=== PATIENT | female | born 1995 | race Caucasian/White ===

== ENCOUNTER 2017-06-16 00:22 | Emergency (ER) | payer SELFPAY ==
[2017-06-16] MEDS ORDERED: MIDAZOLAM 2 MG/2 ML INJ IM ONE (01:02)
[2017-06-16] MEDS ORDERED: HALOPERIDOL LACTATE INJ 5 MG/1 ML VIAL IM ONE (01:02)
[2017-06-16] MEDS ORDERED: NORMAL SALINE 1000 ML 1,000 ML IV ONE (01:12)
[2017-06-16] MEDS ORDERED: HALOPERIDOL LACTATE INJ 5 MG/1 ML VIAL IV ONE (01:12)
--- NOTE | 2017-06-16 01:12 | ER Document Report ---
ED General - General Chief Complaint: ETOH Abuse Stated Complaint: ETOH Time Seen by Provider: 06/16/17 01:01 Notes: Patient is a 21-year-old female with unknown past medical history who presents to the emergency department acutely intoxicated. She arrives with friends who state that she was out drinking and partying tonight but there uncertain of what she has drank or possibly ingested. The patient herself is unable to provide any meaningful history, crying, stating that he needs to help her, provide additional history. TRAVEL OUTSIDE OF THE [place] IN LAST 30 DAYS: No - Related Data Allergies/Adverse Reactions: Unable to Assess Allergy (Verified 06/16/17 00:34) Past Medical History - General Information source: Friend Cannot obtain history due to: Intoxicated - Social History Smoking Status: Unknown if Ever Smoked Frequency of alcohol use: None Drug Abuse: None Family History: Reviewed & Not Pertinent Review of Systems - Review of Systems -: Yes ROS unobtainable due to patient's medical condition Physical Exam - Vital signs Interpretation: Tachycardic Notes: PHYSICAL EXAMINATION: GENERAL: Crying hysterically, intermittently thrashing in the bed HEAD: Atraumatic, normocephalic. EYES: Pupils equal round and reactive to light, extraocular movements intact, sclera anicteric, conjunctiva are normal. ENT: nares patent, oropharynx clear without exudates. Dry mucous membranes. NECK: Normal range of motion, supple without lymphadenopathy LUNGS: Breath sounds clear to auscultation bilaterally and equal. No wheezes rales or rhonchi. HEART: Regular tachycardia without murmurs ABDOMEN: Soft, nontender, normoactive bowel sounds. No guarding, no rebound. No masses appreciated. EXTREMITIES: Normal range of motion, no pitting or edema. No cyanosis. NEUROLOGICAL: No focal neurological deficits. Moves all extremities spontaneously. PSYCH: Anxious, tearful, intermittently agitated SKIN: Warm, Dry, normal turgor, no rashes or lesions noted. Course - Re-evaluation Re-evalutation: 06/16/17 01:11 Patient comes in, crying hysterically, unable to provide any meaningful history. She does state that she was drinking alcohol tonight apparently to the tach but does not state this to me. She does smell strongly of alcohol. She apparently denies any additional coingestions. She does appear clinically quite intoxicated and given her acute agitation, will be given haloperidol 5 mg. Will also provide IV fluids. Will monitor closely 06/16/17 01:53 After 5 mg of IV haloperidol patient is resting calmly, tachycardia is improving , no further agitation. Labs show mild dehydration, minimal alcohol level which would not account for patient's degree of abnormal behavior. Patient's initial presentation and behaviors are much more consistent with polypharmacy. She has no clinical evidence of head trauma or neck trauma and her initial clinical presentation is not consistent with head trauma as etiology of her altered mental status. Will monitor into the patient has clinically sober and then plan for disposition 06/16/17 02:59 Patient is now awake, talking, relates that she was out partying with friends, "just trying to have a good time" and that her 2-year-old is staying with her mother. She is uncertain if anybody has given her any additional medications but again her initial clinical profile the suggest that patient either willfully or unlawful use additional substances tonight beyond alcohol. Will ambulate and p.o. challenge the patient. When she has a sober ride she can be safely discharged home. - Laboratory Result Diagrams: 06/16/17 00:52 Laboratory results interpreted by me: 06/16/17 00:52 Potassium 3.4 L Carbon Dioxide 17 L Anion Gap 22 H Glucose 158 H Discharge - Discharge Clinical Impression: Acute alcohol intoxication Qualifiers: Complication of substance-induced condition: uncomplicated Qualified Code(s): F10.929 - Alcohol use, unspecified with intoxication, unspecified Altered mental status Qualifiers: Altered mental status type: transient alteration of awareness Qualified Code(s) : R40.4 - Transient alteration of awareness Condition: Good Disposition: HOME, SELF-CARE Additional Instructions: You were seen tonight for being highly intoxicated, confused, and likely were exposed to drugs other than alcohol. This is a serious indicator that you have substance abuse issues and should consider seeking counseling or help on how to manage use of substances appropriately. Please also keep in mind that you are under the age of 21 and consumption of alcohol is illegal. Please follow-up with her primary care doctor in the next several days. Return to the emergency department if you develop severe headache, persistent vomiting, weakness, numbness, or any other symptoms that are worrisome to you.
[2017-06-16 01:33] LABS: ALCOHOL 83 mg/dL (NONE DETECTED); BLOOD UREA NITROGEN 12 mg/dL (7-20); CALCIUM 9.3 mg/dL (8.4-10.2); CHLORIDE 105 mmol/L (98-107); CREATININE RESULT 0.82 mg/dL (0.52-1.25); GLUCOSE 158 mg/dL (75-110); POTASSIUM 3.4 mmol/L (3.6-5.0)
[2017-06-16 01:44] LABS: CARBON DIOXIDE 17 mmol/L (22-30); SODIUM 144.3 mmol/L (137-145)
[2017-06-16 01:45] LABS: ANION GAP 22 (5-19)
[2017-06-16 06:38] VITALS: BP 102/67
== END 2017-06-16 06:38 | disposition home or self-care (01) ==
LOC: ER 00:22 → EDBD 00:22 → ER 06:38
DX: F10.129 Alcohol abuse with intoxication, unspecified (principal); E86.0 Dehydration; R00.0 Tachycardia, unspecified
CPT/HCPCS: 99284; 96372; 36415; 80307; 80048; J1630

== ENCOUNTER 2017-07-06 19:08 | Emergency (ER) | payer MEDICAID ==
[2017-07-06 19:18] VITALS: BP 114/70
[2017-07-06 20:43] LABS: APPEARANCE,URINE SLIGHTLY-CLOUDY; BILIRUBIN,URINE NEGATIVE (NEGATIVE); GLUCOSE, URINE NEGATIVE (NEGATIVE); KETONES,URINE NEGATIVE (NEGATIVE); LEUKOCYTE ESTERASE,URINE TRACE (NEGATIVE); NITRITE,URINE NEGATIVE (NEGATIVE); PROTEIN,URINE NEGATIVE (NEGATIVE); URINE SPECIFIC GRAVITY 1.014; UROBILINOGEN,URINE NEGATIVE mg/dL (<2.0)
[2017-07-06 20:57] LABS: ABSOLUTE BASOPHILS # (AUTO) 0.1 10^3/uL (0.0-0.2); ABSOLUTE EOSINOPHILS # (AUTO) 0.1 10^3/uL (0.0-0.6); ABSOLUTE LYMPHOCYTES (AUTO) 2.3 10^3/uL (0.5-4.7); ABSOLUTE MONOCYTES (AUTO) 0.6 10^3/uL (0.1-1.4); ABSOLUTE NEUT (AUTO) 3.1 10^3/uL (1.7-8.2); EOSINOPHILS % (AUTO) 2.3 % (0-6); HEMATOCRIT 35.8 % (36.0-47.0); HEMOGLOBIN 11.8 g/dL (12.0-15.5); HGB HCT DIFFERENCE -0.4; LYMPHOCYTES % (AUTO) 37.3 % (13-45); MEAN CORPUSCULAR HEMOGLOBIN 26.2 pg (27.0-33.4); MEAN CORPUSCULAR VOLUME 79 fl (80-97); MONOCYTES % (AUTO) 9.8 % (3-13); RED BLOOD COUNT 4.51 10^6/uL (3.72-5.28); SEGMENTED NEUTROPHILS % (AUTO) 49.6 % (42-78); WHITE BLOOD COUNT 6.3 10^3/uL (4.0-10.5)
--- NOTE | 2017-07-06 21:09 | ER Document Report ---
ED GI/ - General Chief Complaint: Vaginal Bleeding Stated Complaint: VAGINAL BLEEDING Time Seen by Provider: 07/06/17 21:00 Notes: Patient is a 21-year-old female, at 8 weeks gestation by LMP, that comes emergency department for chief complaint of vaginal bleeding, she has had spotting for the past few days, increased vaginal bleeding earlier today, bleeding resolved at this time. She denies being in pain. She does report dysuria, she denies fever, vomiting, vaginal discharge, dizziness. She takes no daily medications. TRAVEL OUTSIDE OF THE [place] IN LAST 30 DAYS: No - Related Data Allergies/Adverse Reactions: No Known Allergies Allergy (Unverified 07/06/17 19:12) Past Medical History - General Information source: Patient - Social History Smoking Status: Current Every Day Smoker Frequency of alcohol use: None Drug Abuse: None Lives with: Family Family History: Reviewed & Not Pertinent Patient has suicidal ideation: No Patient has homicidal ideation: No Renal/ Medical History: Denies: Hx Peritoneal Dialysis Psychiatric Medical History: Reports: Hx Depression Past Surgical History: Reports: Hx Orthopedic Surgery - Immunizations Hx Diphtheria, Pertussis, Tetanus Vaccination: Yes Review of Systems - Review of Systems Constitutional: No symptoms reported EENT: No symptoms reported Cardiovascular: No symptoms reported Respiratory: No symptoms reported Gastrointestinal: See HPI Genitourinary: See HPI Female Genitourinary: See HPI Musculoskeletal: No symptoms reported Skin: No symptoms reported Hematologic/Lymphatic: No symptoms reported Neurological/Psychological: No symptoms reported Physical Exam - Vital signs Vitals: Temp Pulse Resp BP Pulse Ox 97.4 F 87 18 114/70 99 07/06/17 19:17 07/06/17 19:17 07/06/17 19:17 07/06/17 19:17 07/06/17 19:17 Interpretation: Normal - General General appearance: Appears well, Alert In distress: None - HEENT Head: Normocephalic, Atraumatic Eyes: Normal Pupils: PERRL - Respiratory Respiratory status: No respiratory distress Chest status: Nontender Breath sounds: Normal Chest palpation: Normal - Cardiovascular Rhythm: Regular Heart sounds: Normal auscultation Murmur: No - Abdominal Inspection: Normal Distension: No distension Bowel sounds: Normal Tenderness: Nontender. No: Tender, McBurney's point, Davison's sign, Guarding Organomegaly: No organomegaly - Back Back: Normal, Nontender. No: Tender, CVA tenderness - Extremities General upper extremity: Normal inspection, Nontender, Normal color, Normal ROM , Normal temperature General lower extremity: Normal inspection, Nontender, Normal color, Normal ROM , Normal temperature, Normal weight bearing. No: Ishaan's sign - Neurological Neuro grossly intact: Yes Cognition: Normal Orientation: AAOx4 Sisters Coma Scale Eye Opening: Spontaneous Sisters Coma Scale Verbal: Oriented Leeann Coma Scale Motor: Obeys Commands Sisters Coma Scale Total: 15 Speech: Normal Motor strength normal: LUE, RUE, LLE, RLE Sensory: Normal - Psychological Associated symptoms: Normal affect, Normal mood - Skin Skin Temperature: Warm Skin Moisture: Dry Skin Color: Normal Course - Re-evaluation Re-evalutation: Patient is well-appearing, abdomen is nontender, vital signs unremarkable. CBC unremarkable, hCG is elevated at 8500, blood type is O+. Urinalysis consistent with urinary tract infection. Ultrasound does not show intrauterine or any obvious acute abnormalities. Concern for possible ectopic (also because patient denies having any significant bleeding or passing any obvious tissue). 07/06/17 22:[address] Bruner, [facility], based on patient not wanting to keep the and the risk of possible ectopic , his recommendation at this time is for patient be given a dose of methotrexate and then follow-up in the office for serial beta hCG levels. Recommends checking renal and liver functioning before dosing. Discussed methotrexate dosing, patient will be given 50 mg/m body surface area IM single dose protocol. Patient is 5 foot 2 inches or 157.48 cm, her weight is 55 kg, this gives her a body surface area of 1.55 m. And 50 mg/m body surface area this is 77.5 mg. Discussed all details with patient, she states she is in full agreement with getting treated and following up with [facility] as planned. Having to do a written order for the IM MTX, scanning this in. Explained why we are waiting to the patient. 07/07/17 Nurse reported to me that patient eloped. 07/07/17 12:20 Called patient on her phone after she eloped, she did answer, explained again that she could have an ectopic as we discussed before and this could be potentially life-threatening, also discussed that she had not been treated yet for her urinary tract infection, she states that she does want to come back in and get treated but does not think she will be able to until this morning. She states she agreed with plan but she needed to get back home at the time. Advised her to return sooner than this tomorrow morning if she develops severe pain or any other concerning or worsening symptoms. She states understanding and agreement. - Vital Signs Vital signs: Temp Pulse Resp BP Pulse Ox 97.4 F 87 18 114/70 99 07/06/17 19:17 07/06/17 19:17 07/06/17 19:17 07/06/17 19:17 07/06/17 19:17 - Laboratory Result Diagrams: 07/06/17 20:40 07/06/17 20:40 Laboratory results interpreted by me: 07/06/17 07/06/17 07/06/17 20:26 20:40 20:40 Hgb 11.8 L Hct 35.8 L MCV 79 L MCH 26.2 L RDW 16.0 H Carbon Dioxide BUN Total Bilirubin Albumin Beta HCG, Quant 8529.90 H Ur Leukocyte Esterase TRACE H 07/06/17 20:40 Hgb Hct MCV MCH RDW Carbon Dioxide 21 L BUN 6 L Total Bilirubin 0.1 L Albumin 3.6 L Beta HCG, Quant Ur Leukocyte Esterase Discharge - Discharge Clinical Impression: Vaginal bleeding affecting early , Dysuria Condition: Stable Disposition: HOME, SELF-CARE Additional Instructions: Your ultrasound does not show a in the uterus but your hormone is still elevated. It is unclear if you have already miscarried or if you have an ectopic . I spoke with Dr. Bruner (OBGYN). You have been given a dose of methotrexate to help treat a suspected possible ectopic . Call the [facility] referral in the morning to set up a very close follow-up to recheck your blood levels and make sure this is working. Take the Keflex antibiotic as prescribed for urinary tract infection. Return immediately if you worsen in anyway including developing or severe pain, fever, passing out, or any other concerning symptoms. Prescriptions: Cephalexin Monohydrate [Keflex 500 mg Capsule] 500 mg PO BID #10 capsule Referrals: MACARENA BRUNER MD [ACTIVE STAFF] - Follow up tomorrow
--- NOTE | 2017-07-06 21:55 | RADIOLOGY REPORT (SQ) ---
EXAM DESCRIPTION: U/S OB TRANSVAG W/DOPPLER COMPLETED DATE/TIME: 07/06/2017 9:43 pm REASON FOR STUDY: vaginal bleeding, 1st trimester COMPARISON: None. TECHNIQUE: Transvaginal static and realtime grayscale images acquired of the pelvis. Additional laureano cted spectral and color Doppler images recorded. All images stored on PACs. BHCG: Pending. LIMITATIONS: None. FINDINGS: UTERUS: No visualized intrauterine . RIGHT ADNEXA: Normal ovary with normal vascular flow. No adnexal free fluid. 1.5 cm complex cyst. LEFT ADNEXA: Normal ovary with normal vascular flow. No adnexal free fluid. No adnexal masses. FREE FLUID: None. OTHER: No other significant finding. IMPRESSION: NO VISUALIZED INTRA- OR EXTRAUTERINE . bHCG LEVEL NOT AVAILABLE FOR CORRELATION WITH US FINDINGS. ECTOPIC CANNOT BE EXCLUDED. FOLLOW-UP ULTRASOUND AND SERIAL BHCG LEVELS STRONGLY RECOMMENDED TO ACCURATELY ASSESS STATU S. TECHNICAL DOCUMENTATION: JOB ID: [id number] [employer]- All Rights Reserved
[2017-07-06 22:58] LABS: ALANINE AMINOTRANSFERASE 25 U/L (5-35); ALBUMIN 3.6 g/dL (3.7-5.6); ALKALINE PHOSPHATASE 54 U/L (50-135); ANION GAP 11 (5-19); ASPARTATE AMINO TRANSFERASE 16 U/L (5-30); BILIRUBIN,DIRECT 0.1 mg/dL (0.0-0.4); BILIRUBIN,TOTAL 0.1 mg/dL (0.2-1.3); BLOOD UREA NITROGEN 6 mg/dL (7-20); CALCIUM 9.3 mg/dL (8.4-10.2); CARBON DIOXIDE 21 mmol/L (22-30); CHLORIDE 107 mmol/L (98-107); CREATININE RESULT 0.66 mg/dL (0.52-1.25); GLUCOSE 80 mg/dL (75-110); POTASSIUM 4.2 mmol/L (3.6-5.0); SODIUM 139.3 mmol/L (137-145); TOTAL PROTEIN 6.5 g/dL (6.3-8.2)
== END 2017-07-06 23:58 | disposition left against medical advice (07) ==
LOC: ER 19:08
DX: O20.9 Hemorrhage in early pregnancy, unspecified (principal); O23.41 Unspecified infection of urinary tract in pregnancy, first trimester; O99.331 Smoking (tobacco) complicating pregnancy, first trimester; Z3A.08 8 weeks gestation of pregnancy; O26.891 Other specified pregnancy related conditions, first trimester
CPT/HCPCS: 36415; 76817; 80053; 81001; 84702; 85025; 86900; 86901; 93976; 99284

== ENCOUNTER 2017-07-10 16:23 | Inpatient (IN) | payer MEDICAID ==
[~2017-07-10 16:23] MED LIST: GLYCOPYRROLATE INJ 0.4 MG/2 ML VIAL ONE; KETOROLAC TROMETHAMINE 60 MG/2 ML SDV ONE; NEOSTIGMINE METHYLSULFATE 10 MG/10 ML VIAL ONE; ROCURONIUM BROMIDE INJ 50 MG/5 ML VIAL IV ONE; SUCCINYLCHOLINE CHLORIDE INJ 200 MG/10 ML VIAL ONE
--- NOTE | 2017-07-10 17:19 | ER Document Report ---
ED Medical Screen (RME) - General Mode of Arrival: Ambulatory Information source: Patient TRAVEL OUTSIDE OF THE [place] IN LAST 30 DAYS: No <GANESH CARDENAS - Last Filed: 07/10/17 17:37> <SEUN MOURA - Last Filed: 07/10/17 18:29> - General Chief Complaint: Abdominal Pain Stated Complaint: ABDOMINAL PAIN Time Seen by Provider: 07/10/17 17:08 Notes: Patient is a 21 year old female presenting to the emergency department concerned for possible . Patient was last seen here on 07/07/2017 and told she had a positive test but unable to see anything on ultrasound and there was a concern for possible miscarriage or ectopic . Patient was going to receive Methotrexate but did not because she left. Patient states she has symptoms of burning urination and some vaginal spotting. I have greeted and performed a rapid initial assessment of this patient. A comprehensive ED assessment and evaluation of the patient, analysis of test results and completion of the medical decision making process will be conducted by additional ED providers. (GANESH CARDENAS) - Related Data Allergies/Adverse Reactions: No Known Allergies Allergy (Verified 07/10/17 16:25) Past Medical History Renal/ Medical History: Denies: Hx Peritoneal Dialysis Psychiatric Medical History: Reports: Hx Depression Past Surgical History: Reports: Hx Orthopedic Surgery - Immunizations Hx Diphtheria, Pertussis, Tetanus Vaccination: Yes <GANESH CARDENAS - Last Filed: 07/10/17 17:37> Physical Exam <GANESH CARDENAS - Last Filed: 07/10/17 17:37> - General General appearance: Appears well, Alert - HEENT Head: Normocephalic, Atraumatic Eyes: Normal Pupils: PERRL - Psychological Associated symptoms: Normal affect, Normal mood <SEUN MOURA - Last Filed: 07/10/17 18:29> - Vital signs Vitals: Temp Pulse Resp BP Pulse Ox 98.0 F 86 20 108/68 100 07/10/17 16:29 07/10/17 16:29 07/10/17 16:29 07/10/17 16:29 07/10/17 16:29 - Notes Notes: GENERAL: Alert, interacts well. No acute distress. (GANESH CARDENAS) Course - Laboratory Result Diagrams: 07/10/17 17:30 07/10/17 17:30 <SEUN MOURA - Last Filed: 07/10/17 18:29> - Vital Signs Vital signs: Temp Pulse Resp BP Pulse Ox 98.0 F 86 20 108/68 100 07/10/17 16:29 07/10/17 16:29 07/10/17 16:29 07/10/17 16:29 07/10/17 16:29 - Laboratory Laboratory results interpreted by me: 07/10/17 07/10/17 17:30 17:30 MCH 25.6 L RDW 16.1 H Urine Protein 100 H Urine Blood SMALL H Urine Urobilinogen 2.0 H Ur Leukocyte Esterase MODERATE H Scribe Documentation - Scribe Written by Luci:: Luci Pena, 07/10/2017 17:31 acting as scribe for :: Lon <GANESH CARDENAS - Last Filed: 07/10/17 17:37>
[2017-07-10 17:54] LABS: ABSOLUTE BASOPHILS # (AUTO) 0.1 10^3/uL (0.0-0.2); ABSOLUTE EOSINOPHILS # (AUTO) 0.2 10^3/uL (0.0-0.6); ABSOLUTE MONOCYTES (AUTO) 0.6 10^3/uL (0.1-1.4); ABSOLUTE NEUT (AUTO) 3.7 10^3/uL (1.7-8.2); BASOPHILS % (AUTO) 0.9 % (0-2); EOSINOPHILS % (AUTO) 3.7 % (0-6); HEMATOCRIT 41.3 % (36.0-47.0); HEMOGLOBIN 13.3 g/dL (12.0-15.5); LYMPHOCYTES % (AUTO) 30.4 % (13-45); MEAN CORPUSCULAR HEMOGLOBIN 25.6 pg (27.0-33.4); MEAN CORPUSCULAR HGB CONC 32.2 g/dL (32.0-36.0); MEAN CORPUSCULAR VOLUME 80 fl (80-97); MONOCYTES % (AUTO) 9.5 % (3-13); PLATELET COUNT 281 10^3/uL (150-450); RED BLOOD COUNT 5.19 10^6/uL (3.72-5.28); RED CELL DISTRIBUTION WIDTH 16.1 % (11.5-14.0); SEGMENTED NEUTROPHILS % (AUTO) 55.5 % (42-78); TOTAL CELLS COUNTED % (AUTO) 100 %; WHITE BLOOD COUNT 6.6 10^3/uL (4.0-10.5)
[2017-07-10 18:00] LABS: INTERNATIONAL RATION (INR) 0.93; PROTHROMBIN TIME 13.1 SEC (11.4-15.4)
[2017-07-10 18:04] LABS: APPEARANCE,URINE CLOUDY; BILIRUBIN,URINE NEGATIVE (NEGATIVE); COLOR,URINE YELLOW; GLUCOSE, URINE NEGATIVE (NEGATIVE); KETONES,URINE NEGATIVE (NEGATIVE); LEUKOCYTE ESTERASE,URINE MODERATE (NEGATIVE); NITRITE,URINE NEGATIVE (NEGATIVE); PROTEIN,URINE 100 mg/dL (NEGATIVE); URINE SPECIFIC GRAVITY 1.023
[2017-07-10 18:16] LABS: ALANINE AMINOTRANSFERASE 20 U/L (5-35); ALBUMIN 4.2 g/dL (3.7-5.6); ALKALINE PHOSPHATASE 61 U/L (50-135); ANION GAP 11 (5-19); ASPARTATE AMINO TRANSFERASE 18 U/L (5-30); BILIRUBIN,DIRECT 0.2 mg/dL (0.0-0.4); BILIRUBIN,TOTAL 0.6 mg/dL (0.2-1.3); BLOOD UREA NITROGEN 9 mg/dL (7-20); CALCIUM 9.9 mg/dL (8.4-10.2); CARBON DIOXIDE 28 mmol/L (22-30); CHLORIDE 104 mmol/L (98-107); GLUCOSE 64 mg/dL (75-110); POTASSIUM 3.8 mmol/L (3.6-5.0); SODIUM 143.3 mmol/L (137-145); TOTAL PROTEIN 7.2 g/dL (6.3-8.2)
--- NOTE | 2017-07-10 19:01 | RADIOLOGY REPORT (SQ) ---
EXAM DESCRIPTION: U/S OB TRANSVAG W/DOPPLER COMPLETED DATE/TIME: 07/10/2017 6:47 pm REASON FOR STUDY: possible ectopic vs miscarriage, recheck COMPARISON: 07/06/2017. TECHNIQUE: Transvaginal static and realtime grayscale images acquired of the pelvis. Additional laureano cted spectral and color Doppler images recorded. All images stored on PACs. BHCG: Pending. LIMITATIONS: None. FINDINGS: UTERUS: No visualized intrauterine . RIGHT ADNEXA: There is a clearly defined ectopic in the right adnexa. There is a gestation al sac with yolk sac and pole. Measurements correspond with a 6 week gestation. cardiac activity is present with a heart rate of 51. LEFT ADNEXA: Ovary not identified. No adnexal free fluid. No adnexal masses. FREE FLUID: None. OTHER: No other significant finding. IMPRESSION: CLEARLY DEFINED ECTOPIC IN THE RIGHT ADNEXA, 6 WEEK GESTATION. NO FREE FLUID OR EVIDENCE OF HEMORRHAGE. COMMENT: Pertinent findings on the imaging study reported as a CRITICAL RESULT to ER provider at18: 54 on 07/10/2017. Category of Critical Result: Ectopic . TECHNICAL DOCUMENTATION: JOB ID: [id number] [employer]- All Rights Reserved
--- NOTE | 2017-07-10 19:07 | ER Document Report ---
ED GI/ <KINSEY HENSON - Last Filed: 07/10/17 19:26> - General Mode of Arrival: Ambulatory TRAVEL OUTSIDE OF THE [place] IN LAST 30 DAYS: No - HPI Patient complains to provider of: Dysuria, Vaginal bleeding - spotting Associated symptoms: Other - see notes above <HAYDEE HOLBROOK - Last Filed: 07/10/17 19:31> - General Chief Complaint: Abdominal Pain Stated Complaint: ABDOMINAL PAIN Time Seen by Provider: 07/10/17 17:08 Notes: 21 year old female presents to the ED complaining of dysuria, burning with urination, and rare vaginal spotting that has been present for the past 4 days. Patient reports that she was seen in the ED on 07/06/2017 for vaginal bleeding and was informed of possible miscarriage or ectopic in addition to a bladder infection. Patient reports that she left the ED before receiving any medications. Today, patient reports no pain and says that she is only having some occasional spotting. (HAYDEE HOLBROOK) - Related Data Allergies/Adverse Reactions: No Known Allergies Allergy (Verified 07/10/17 16:25) Past Medical History - General Information source: Patient - Social History Smoking Status: Current Every Day Smoker Chew tobacco use (# tins/day): No Frequency of alcohol use: None Drug Abuse: None Family History: Reviewed & Not Pertinent Patient has suicidal ideation: No Patient has homicidal ideation: No Renal/ Medical History: Denies: Hx Peritoneal Dialysis Psychiatric Medical History: Reports: Hx Depression Past Surgical History: Reports: Hx Orthopedic Surgery - Immunizations Hx Diphtheria, Pertussis, Tetanus Vaccination: Yes <HAYDEE HOLBROOK - Last Filed: 07/10/17 19:31> Review of Systems - Review of Systems Constitutional: No symptoms reported EENT: No symptoms reported Cardiovascular: No symptoms reported Respiratory: No symptoms reported Gastrointestinal: No symptoms reported Genitourinary: See HPI, Burning, Dysuria Female Genitourinary: See HPI, Vaginal bleeding - spotting Musculoskeletal: No symptoms reported Skin: No symptoms reported Hematologic/Lymphatic: No symptoms reported Neurological/Psychological: No symptoms reported -: Yes All other systems reviewed and negative <HAYDEE HOLBROOK - Last Filed: 07/10/17 19:31> Physical Exam - General General appearance: Alert In distress: None - HEENT Head: Normocephalic, Atraumatic Eyes: Normal Extraocular movements intact: Yes Pupils: PERRL - Respiratory Respiratory status: No respiratory distress Breath sounds: Normal - Cardiovascular Rhythm: Regular Heart sounds: Normal auscultation - Abdominal Inspection: Normal Tenderness: Tender - suprapubic tenderness to palpation - Back Back: Normal - Extremities General upper extremity: Normal inspection, Normal ROM General lower extremity: Normal inspection, Normal ROM - Neurological Neuro grossly intact: Yes - Psychological Associated symptoms: Normal affect, Normal mood - Skin Skin Temperature: Warm Skin Moisture: Dry Skin Color: Normal <HAYDEE HOLBROOK - Last Filed: 07/10/17 19:31> - Vital signs Vitals: Temp Pulse Resp BP Pulse Ox 98.0 F 86 20 108/68 100 07/10/17 16:29 07/10/17 16:29 07/10/17 16:29 07/10/17 16:29 07/10/17 16:29 Course - Laboratory Result Diagrams: 07/10/17 17:30 07/10/17 17:30 - Diagnostic Test Radiology reviewed: Reports reviewed - Ultrasound shows a right adnexal ectopic with heart rate 51, gestational sac, yolk sac, and pole. There is no bleeding seen. - Consults Dr. Bruner Time consulted: 19:10 Consulted provider: will come to ER <KINSEY HENSON - Last Filed: 07/10/17 19:26> - Laboratory Result Diagrams: 07/10/17 17:30 07/10/17 17:30 <HAYDEE HOLBROOK - Last Filed: 07/10/17 19:31> - Vital Signs Vital signs: Temp Pulse Resp BP Pulse Ox 98.0 F 86 20 108/68 100 07/10/17 16:29 07/10/17 16:29 07/10/17 16:29 07/10/17 16:29 07/10/17 16:29 - Laboratory Laboratory results interpreted by me: 07/10/17 07/10/17 07/10/17 17:30 17:30 17:30 MCH 25.6 L RDW 16.1 H Glucose 64 L Beta HCG, Quant 20992.00 H Urine Protein 100 H Urine Blood SMALL H Urine Urobilinogen 2.0 H Ur Leukocyte Esterase MODERATE H Discharge - Discharge Admitting Provider: [facility] Admitted: OR <KINSEY HENSON - Last Filed: 07/10/17 19:26> <HAYDEE HOLBROOK - Last Filed: 07/10/17 19:31> - Discharge Clinical Impression: Ectopic , tubal Qualifiers: Intrauterine status: without intrauterine Laterality: right Qualified Code(s): O00.101 - Right tubal without intrauterine Urinary tract infection Qualifiers: Urinary tract infection type: acute cystitis Hematuria presence: with hematuria Qualified Code(s): N30.01 - Acute cystitis with hematuria Referrals: REJI GLOVER DO [NO LOCAL MD] - Follow up as needed Scribe Attestation: 07/10/17 19:27 I personally performed the services described in the documentation, reviewed and edited the documentation which was dictated to the scribe in my presence, and it accurately records my words and actions. (KINSEY HENSON) Scribe Documentation - Scribe Written by Scribe:: Luci Mejias, 07/10/2017 1931 acting as scribe for :: Zak <HAYDEE HOLBROOK - Last Filed: 07/10/17 19:31>
[2017-07-10] MEDS ORDERED: CEFAZOLIN 2 GM/D5W RTU 2 GM/50 ML RTUPB IV PRN (20:15)
[2017-07-10] MEDS ORDERED: FENTANYL CITRATE INJ/PF 100 MCG/2 ML AMPUL ONE ×2 (23:17→23:18)
[2017-07-10] MEDS ORDERED: HYDROMORPHONE HCL INJ/PF 2 MG/ML AMPULE ONE (23:17)
[2017-07-10] MEDS ORDERED: ONDANSETRON HCL INJ/PF 4 MG/2 ML SDV ONE (23:18)
[2017-07-10] MEDS ORDERED: DEXAMETHASONE SOD PHOSPHATE INJ 4 MG/1 ML VIAL ONE (23:18)
[2017-07-10] MEDS ORDERED: MIDAZOLAM 2 MG/2 ML INJ ONE (23:18)
[2017-07-10] MEDS ORDERED: PROPOFOL INJ 200 MG/20 ML VIAL IV ONE (23:19)
[2017-07-11] MEDS ORDERED: MORPHINE SULFATE 10 MG/ML INJ IV PRN (00:17)
[2017-07-11] MEDS ORDERED: DIPHENHYDRAMINE HCL 50 MG/ML VIAL IV PRN (00:17)
[2017-07-11] MEDS ORDERED: MEPERIDINE HCL/PF INJ 25 MG/1 ML DISP.SYRIN IV PRN (00:17)
[2017-07-11] MEDS ORDERED: OXYCODONE-ACETAMINOPHEN 5-325 MG TABLET PO PRN ×3 (00:17→01:23)
[2017-07-11] MEDS ORDERED: FENTANYL CITRATE INJ/PF 100 MCG/2 ML AMPUL IV PRN ×3 (00:17)
[2017-07-11] MEDS ORDERED: PROMETHAZINE HCL INJ 25 MG/1 ML VIAL IV PRN ×2 (00:17)
--- NOTE | 2017-07-11 01:03 | Operative Report ---
Operative Report DATE OF SURGERY: 07/11/17 PREOPERATIVE DIAGNOSIS: Right ectopic POSTOPERATIVE DIAGNOSIS: Same OPERATION: Laparoscopy with right salpingectomy SURGEON: MACARENA DECKER ANESTHESIA: GA TISSUE REMOVED OR ALTERED: Right fallopian tube with ectopic COMPLICATIONS: None ESTIMATED BLOOD LOSS: 5 cc INTRAOPERATIVE FINDINGS: Normal left tube and ovary normal right ovary, right ectopic PROCEDURE: Patient was seen in the ER and has a heartbeat in the right adnexa consistent with an ectopic . We have discussed options including methotrexate and the relative contraindication to that with the heartbeat. I have also discussed operative treatment with laparoscopy. She wished to proceed with the laparoscopy. Patient was taken the OR and placed in supine position. General anesthesia was induced. She was placed in dorsolithotomy position using Syed stirrups. Her abdomen perineum and vagina were prepared and draped in sterile fashion. Her bladder was drained with a red rubber catheter. A sponge stick was placed in the vagina for manipulation of the uterus. Incision was made at the umbilicus natural umbilical defect identified and dilated with a Mary clamp allowing a blunt port to be placed. Laparoscopy confirmed appropriate placement. The abdomen was insufflated with CO2 gas. Suprapubic and left lateral ports were placed under laparoscopic visualization. This allowed removal of the right fallopian tube using a blunt grasper and the LigaSure device. The ectopic was in the distal right fallopian tube. Hemostasis was good pedicle. The specimen was placed in the Endo Catch bag and removed through the umbilicus. The umbilical port was replaced. The pelvis was irrigated and suctioned free of fluid. Hemostasis was good. There was no evidence of injury to bowel bladder or blood vessels. The suprapubic and left lateral ports were removed. The umbilical port was removed and gas was allowed to escape. The fascia at the umbilicus was closed with the 2-0 Vicryl stitch and skin closed with 4-0 undyed Vicryl stitch at all 3 sites. All instruments removed from the vagina. She is brought out of anesthesia and taken recovery in stable condition.
[2017-07-11] MEDS ORDERED: RINGERS SOLUTION,LACTATED 1,000 ML IV PRN (01:22)
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
[2017-07-11 10:36] VITALS: BP 110/68
== END 2017-07-11 11:42 | disposition home or self-care (01) | DRG 777 ==
LOC: ER 16:23 → EH 19:46 → 2S 21:45
PROVIDERS: ADMIT Obstetrics & Gynecology; ATTEND Obstetrics & Gynecology
PROC: 0UT54ZZ Resection of Right Fallopian Tube, Percutaneous Endoscopic Approach (ICD-10-PCS; principal; 2017-07-11)
PROC: 10T24ZZ Resection of Products of Conception, Ectopic, Percutaneous Endoscopic Approach (ICD-10-PCS; 2017-07-11)
DX: O00.101 Right tubal pregnancy without intrauterine pregnancy (principal); N30.01 Acute cystitis with hematuria; F17.200 Nicotine dependence, unspecified, uncomplicated; F32.9 Major depressive disorder, single episode, unspecified
CPT/HCPCS: 36415; 76817; 80053; 81001; 840; 84702; 85025; 85610; 86900; 86901; 87086; 87088; 87186; 88305; 93976; 99285; J0330; J0690; J1100; J1170; J1885; J2250; J2405; J2704; J3010; J3490

== ENCOUNTER 2017-10-29 23:36 | Emergency (ER) | payer OTHER, MEDICAID ==
--- NOTE | 2017-10-31 08:41 | EKG REPORT ---
SEVERITY:- NORMAL ECG - SINUS RHYTHM : Confirmed by: Kale Savage MD 31-Oct-2017 08:41:12
== END 2017-10-30 00:30 | disposition left against medical advice (07) ==
LOC: ER 23:36
DX: Z53.21 Procedure and treatment not carried out due to patient leaving prior to being seen by health care provider (principal); R07.9 Chest pain, unspecified
CPT/HCPCS: 93005; 93010

== ENCOUNTER 2017-12-18 01:06 | Emergency (ER) | payer OTHER, MEDICAID ==
[2017-12-18 01:14] VITALS: BP 103/75
== END 2017-12-18 02:09 | disposition left against medical advice (07) ==
LOC: ER 01:06
DX: Z53.21 Procedure and treatment not carried out due to patient leaving prior to being seen by health care provider (principal); R07.9 Chest pain, unspecified

== ENCOUNTER 2018-03-19 23:10 | Emergency (ER) | payer MEDICAID, OTHER ==
--- NOTE | 2018-03-20 00:17 | ER Document Report ---
HPI - HPI Patient complains to provider of: sores vaginal area Onset: Other - 8 days Pain Level: 4 Context: 22-year-old female complaining of sores below her vaginal opening since she has been having frequent intercourse this week. She thought it was due to irritation. No history of herpes simplex virus. No vaginal discharge or swollen glands. Associated Symptoms: None Exacerbated by: Other - sex Relieved by: Denies - ROS ROS below otherwise negative: Yes Systems Reviewed and Negative: Yes All other systems reviewed and negative - REPRODUCTIVE Reproductive: DENIES: : Past Medical History - General Information source: Patient - Social History Smoking Status: Unknown if Ever Smoked Lives with: Family Family History: Reviewed & Not Pertinent - Medical History Medical History: Negative Neurological Medical History: Denies: Hx Seizures Past Surgical History: Reports: Hx Orthopedic Surgery - Immunizations Hx Diphtheria, Pertussis, Tetanus Vaccination: Yes Vertical Provider Document - CONSTITUTIONAL Agree With Documented VS: Yes Exam Limitations: No Limitations - INFECTION CONTROL TRAVEL OUTSIDE OF THE [place] IN LAST 30 DAYS: No - REPRODUCTIVE Notes: no adenopathy, shallow tender ulcerations or folliculitis inferior to introitus and perineum. - NEURO Level of Consciousness: Awake - DERM Integumentary: Rash - see above Course - Re-evaluation Re-evalutation: 03/20/18 00:37 correct cell phone number: [phone] - Vital Signs Vital signs: Temp Pulse Resp BP Pulse Ox 97.7 F 92 16 113/67 99 03/19/18 23:20 03/19/18 23:20 03/19/18 23:20 03/19/18 23:20 03/19/18 23:20 Discharge - Discharge Clinical Impression: perineal ulcerations Condition: Good Disposition: HOME, SELF-CARE Instructions: Bactroban Ointment ([facility]), Ulcer ([facility]) Additional Instructions: Herpes simplex virus is pending and should be resulted in 72 hours Bactroban small amount 3 times a day for 3 days Stop having intercourse until the sores go away since it may be causing the irritation Return to the emergency room any concerns
[2018-03-20] MEDS ORDERED: MUPIROCIN 2% OINTMENT 22 GM TP ONE (00:25)
[2018-03-20 00:50] VITALS: BP 95/72
== END 2018-03-20 00:53 | disposition home or self-care (01) ==
LOC: ER 23:10
DX: N76.5 Ulceration of vagina (principal)
CPT/HCPCS: 99283; 87250; J3490

== ENCOUNTER 2018-04-04 19:38 | Emergency (ER) | payer MEDICAID ==
[2018-04-04 19:53] VITALS: BP 110/71
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
== END 2018-04-04 21:19 | disposition home or self-care (01) ==
LOC: ER 19:38
DX: S01.112D Laceration without foreign body of left eyelid and periocular area, subsequent encounter (principal); X58.XXXD Exposure to other specified factors, subsequent encounter

== ENCOUNTER 2018-08-07 18:04 | Emergency (ER) | payer MEDICAID ==
--- NOTE | 2018-08-07 19:19 | ER Document Report ---
ED Medical Screen (RME) - General Chief Complaint: Laceration Stated Complaint: LACERATION TO CHIN Time Seen by Provider: 08/07/18 19:15 Notes: Patient is a newly arrived inpatient at [facility], admitted there on the . Today, she was observed to have a syncopal episode. She fell and in some manner hit her chin and sustained a small cut there she also has a small scrape of her right hand, dorsal webspace and some superficial bruising across the dorsal hand and fingers. No deformities. Patient does not answer questions that I put to her. A counselor is here and provided a drug list which included Geodon. No information about whether patient has had previous syncopal episodes. TRAVEL OUTSIDE OF THE [place] IN LAST 30 DAYS: No - Related Data Allergies/Adverse Reactions: No Known Allergies Allergy (Verified 08/07/18 18:07) Past Medical History - Social History Frequency of alcohol use: None Drug Abuse: None - Past Medical History Cardiac Medical History: Denies: Hx Congestive Heart Failure, Hx Heart Attack, Hx Hypertension Pulmonary Medical History: Denies: Hx Asthma, Hx Bronchitis, Hx COPD, Hx Pneumonia, Hx Tuberculosis Neurological Medical History: Denies: Hx Seizures Renal/ Medical History: Denies: Hx End Stage Renal Disease, Hx Kidney Stones, Hx Peritoneal Dialysis GI Medical History: Denies: Hx Cirrhosis, Hx Gastroesophageal Reflux Disease, Hx Ulcer Musculoskeltal Medical History: Denies Hx Arthritis, Denies Hx Multiple Sclerosis Psychiatric Medical History: Denies: Hx Bipolar Disorder, Hx Depression, Hx Schizophrenia Past Surgical History: Reports: Hx Orthopedic Surgery - Immunizations Hx Diphtheria, Pertussis, Tetanus Vaccination: Yes History of Influenza Vaccine for 04/2017 - 09/2017 Season: No Physical Exam - Vital signs Vitals: Temp Pulse Resp BP Pulse Ox 98.2 F 118 H 20 126/78 H 100 08/07/18 18:10 08/07/18 18:10 08/07/18 18:10 08/07/18 18:10 08/07/18 18:10 Course - Vital Signs Vital signs: Temp Pulse Resp BP Pulse Ox 98.2 F 118 H 20 126/78 H 100 08/07/18 18:10 08/07/18 18:10 08/07/18 18:10 08/07/18 18:10 08/07/18 18:10 Doctor's Discharge - Discharge Referrals: DREAD ASH MD [Primary Care Provider] - Follow up as needed
--- NOTE | 2018-08-07 19:50 | RADIOLOGY REPORT (SQ) ---
EXAM DESCRIPTION: HAND RIGHT 3 VIEWS COMPLETED DATE/TIME: 08/07/2018 7:39 pm REASON FOR STUDY: Fell and injured right hand. Minor bruises COMPARISON: None. EXAM PARAMETERS: NUMBER OF VIEWS: Three views. TECHNIQUE: AP, lateral and oblique radiographic images acquired of the right hand. LIMITATIONS: None. FINDINGS: MINERALIZATION: Normal. BONES: No acute fracture or dislocation. No worrisome bone lesions. JOINTS: No effusion. SOFT TISSUES: No significant soft tissue swelling. No radiopaque foreign body. OTHER: No other significant finding. IMPRESSION: NO FRACTURE. TECHNICAL DOCUMENTATION: JOB ID: [id number] [place]-72 2010 [employer]- All Rights Reserved Reading location - IP/workstation name: [email or web address]
[2018-08-07 19:54] LABS: ABSOLUTE BASOPHILS # (AUTO) 0.1 10^3/uL (0.0-0.2); ABSOLUTE LYMPHOCYTES (AUTO) 2.1 10^3/uL (0.5-4.7); BASOPHILS % (AUTO) 0.9 % (0-2); EOSINOPHILS % (AUTO) 0.5 % (0-6); HEMATOCRIT 40.5 % (36.0-47.0); HEMOGLOBIN 13.3 g/dL (12.0-15.5); LYMPHOCYTES % (AUTO) 20.8 % (13-45); MEAN CORPUSCULAR HEMOGLOBIN 26.7 pg (27.0-33.4); MEAN CORPUSCULAR HGB CONC 32.8 g/dL (32.0-36.0); MEAN CORPUSCULAR VOLUME 82 fl (80-97); MONOCYTES % (AUTO) 9.3 % (3-13); PLATELET COUNT 262 10^3/uL (150-450); RED BLOOD COUNT 4.97 10^6/uL (3.72-5.28); RED CELL DISTRIBUTION WIDTH 14.5 % (11.5-14.0); SEGMENTED NEUTROPHILS % (AUTO) 68.5 % (42-78); TOTAL CELLS COUNTED % (AUTO) 100 %; WHITE BLOOD COUNT 10.2 10^3/uL (4.0-10.5)
[2018-08-07 20:13] LABS: ALANINE AMINOTRANSFERASE 27 U/L (9-52); ALBUMIN 4.4 g/dL (3.5-5.0); ALKALINE PHOSPHATASE 61 U/L (38-126); ANION GAP 8 (5-19); ASPARTATE AMINO TRANSFERASE 31 U/L (14-36); BILIRUBIN,DIRECT 0.2 mg/dL (0.0-0.4); BILIRUBIN,TOTAL 0.3 mg/dL (0.2-1.3); BLOOD UREA NITROGEN 9 mg/dL (7-20); CALCIUM 9.7 mg/dL (8.4-10.2); CARBON DIOXIDE 27 mmol/L (22-30); CHLORIDE 106 mmol/L (98-107); GLUCOSE 112 mg/dL (75-110); POTASSIUM 4.2 mmol/L (3.6-5.0); SODIUM 141.1 mmol/L (137-145); TOTAL PROTEIN 7.4 g/dL (6.3-8.2)
--- NOTE | 2018-08-07 20:41 | RADIOLOGY REPORT (SQ) ---
EXAM DESCRIPTION: CT HEAD WITHOUT IV CONTRAST COMPLETED DATE/TME: 08/07/2018 20:03 CLINICAL HISTORY: 22 years, Female, fall +LOC CLINICAL HISTORY: fall +LOC COMPARISON: None Available. Technique: Contiguous axial images of the brain were obtained without the administration of intravenous contrast. Coronal and sagittal reformats obtained and reviewed. This exam was performed according to our departmental dose-optimization program which includes use of Automated Exposure Control, adjustment of the mA and/or kV according to patient size and/or use of iterative reconstruction technique. Findings: Brain: No hemorrhage. No territorial infarct. No mass effect. No herniation. Ventricles: Within normal limits for patient's age. Bones: No acute osseous abnormality. Paranasal sinuses: Unremarkable except for small mucous retention cyst in the left maxillary sinus. Mastoid air cells: Unremarkable. Soft tissues: No acute abnormality. IMPRESSION: No acute intracranial abnormalities.
--- NOTE | 2018-08-07 20:43 | RADIOLOGY REPORT (SQ) ---
EXAM DESCRIPTION: CT CERVICAL SPINE WITHOUT IV CONTRAST COMPLETED DATE/TME: 08/07/2018 20:03 CLINICAL HISTORY: 22 years, Female, fall +LOC COMPARISON: None TECHNIQUE: Multiplanar imaging through the cervical spine without contrast. This exam was performed according to our departmental dose-optimization program, which includes automated exposure control, adjustment of the mA and/or kV according to patient size and/or use of iterative reconstruction technique. FINDINGS: No fracture. No subluxation. Disc spaces are preserved. Soft tissues are unremarkable. Visualized lung is clear. IMPRESSION: No acute abnormality. No fracture or subluxation.
[2018-08-07 22:44] LABS: APPEARANCE,URINE CLEAR; BILIRUBIN,URINE NEGATIVE (NEGATIVE); COLOR,URINE YELLOW; GLUCOSE, URINE NEGATIVE (NEGATIVE); KETONES,URINE NEGATIVE (NEGATIVE); LEUKOCYTE ESTERASE,URINE NEGATIVE (NEGATIVE); NITRITE,URINE NEGATIVE (NEGATIVE); PROTEIN,URINE NEGATIVE (NEGATIVE); URINE SPECIFIC GRAVITY 1.013; UROBILINOGEN,URINE NEGATIVE mg/dL (<2.0)
--- NOTE | 2018-08-07 23:38 | ER Document Report ---
ED General - General Chief Complaint: Laceration Stated Complaint: LACERATION TO CHIN Time Seen by Provider: 08/07/18 19:15 Notes: Patient is a 22-year-old female presents to the emergency department for generalized syncopal episode. Patient is a new patient to [facility] on 08/05/2018. Mother states that they then recently changed the patient's medications on 08/06/2018. Mother and staff are unsure of the medications that the patient was on prior to admission to [facility]. Staff who did not witness the fall but is in the emergency department states she got report that around 1400 hrs. the patient was looking up at the ceiling and had a syncopal episode. States the patient did have a positive loss of co nsciousness for about a minute. States the patient did sustain an injury to her chin and her right hand. Staff states initially the patient refused to go to the hospital but then inevitably stated she wanted to go to the hospital. Patient has a very flat affect and will only answer some questions. Every question I ask of her she looks at her mother and then looks at [facility] staff. Staff states that the facility told her that they believe that the patient is not eating or drinking fluids as normally which is why they believe she had syncopal episode. Past medical history: Auditory and visual hallucinations Medications: Geodon, Vistaril, gabapentin Allergies: None Patient currently states "I do not have any pain anywhere why am I here?" TRAVEL OUTSIDE OF THE [place] IN LAST 30 DAYS: No - Related Data Allergies/Adverse Reactions: No Known Allergies Allergy (Verified 08/07/18 18:07) Past Medical History - General Information source: Patient, Parent, Outside Facility Records - Social History Smoking Status: Never Smoker Frequency of alcohol use: None Drug Abuse: None Family History: Reviewed & Not Pertinent Patient has suicidal ideation: No Patient has homicidal ideation: No - Past Medical History Cardiac Medical History: Denies: Hx Congestive Heart Failure, Hx Heart Attack, Hx Hypertension Pulmonary Medical History: Denies: Hx Asthma, Hx Bronchitis, Hx COPD, Hx Pneumonia, Hx Tuberculosis Neurological Medical History: Denies: Hx Seizures Renal/ Medical History: Denies: Hx End Stage Renal Disease, Hx Kidney Stones, Hx Peritoneal Dialysis GI Medical History: Denies: Hx Cirrhosis, Hx Gastroesophageal Reflux Disease, Hx Ulcer Musculoskeletal Medical History: Denies Hx Arthritis, Denies Hx Multiple Scler osis Psychiatric Medical History: Denies: Hx Bipolar Disorder, Hx Depression, Hx Schizophrenia Past Surgical History: Reports: Hx Orthopedic Surgery - Immunizations Hx Diphtheria, Pertussis, Tetanus Vaccination: Yes Review of Systems - Review of Systems Constitutional: No symptoms reported EENT: No symptoms reported Cardiovascular: No symptoms reported Respiratory: No symptoms reported Gastrointestinal: No symptoms reported Genitourinary: No symptoms reported Female Genitourinary: No symptoms reported Musculoskeletal: No symptoms reported Skin: See HPI Hematologic/Lymphatic: No symptoms reported Neurological/Psychological: See HPI Physical Exam - Vital signs Vitals: Temp Pulse Resp BP Pulse Ox 98.2 F 118 H 20 126/78 H 100 08/07/18 18:10 08/07/18 18:10 08/07/18 18:10 08/07/18 18:10 08/07/18 18:10 - Notes Notes: GENERAL: Alert, interacts well. No acute distress. HEAD: Normocephalic EYES: Pupils equal, round, and reactive to light. Extraocular movements intact. ENT: Oral mucosa moist, tongue midline. Nares patent, no nasal septal hematoma, TM's intact no hemotympanum noted bilaterally, NECK: Full range of motion. Supple. Trachea midline. LUNGS: Clear to auscultation bilaterally, no wheezes, rales, or rhonchi. No respiratory distress. HEART: Regular rate and rhythm. No murmur ABDOMEN: Soft, non-tender. Non-distended. Bowel sounds present in all 4 quadrants. EXTREMITIES: Moves all 4 extremities spontaneously. No edema, normal radial and dorsalis pedis pulses bilaterally. Superficial abrasion noted to the dorsal aspect of the right webspace. Full range of motion all 5 fingers on the right hand. BACK: no cervical, thoracic, lumbar midline tenderness. No saddle anesthesia, normal distal neurovascular exam. NEUROLOGICAL: Alert and oriented x3. Normal speech. cranial nerves II through XII grossly intact. PSYCH: Normal affect, normal mood. SKIN: Warm, dry, normal turgor. superficial abrasion noted to the bottom of patient's chin measuring 1 cm x 1 cm. Course - Re-evaluation Re-evalutation: 08/07/18 23:44 Patient's labs show no signs of leukocytosis, no signs of anemia, no signs of urinary tract infection. Patient does appear to be well-hydrated with a speci fic gravity of 1.013 and no ketones noted on her urine. Patient CT exams were negative for fracture or intracranial bleeding. Patient's right ear x-ray was also negative for fracture. Patient was initially tachycardic upon arrival to the emergency room. Her EKG does show sinus tachycardia rate of 106 with a QTC of [address] segment elevations or depressions noted. Discussed lab results with patient At bedside. Patient continues with a flat affect and states she has no pain anywhere. Patient stable for discharge. - Vital Signs Vital signs: Temp Pulse Resp BP Pulse Ox 98.2 F 118 H 20 126/78 H 100 08/07/18 18:10 08/07/18 18:10 08/07/18 18:10 08/07/18 18:10 08/07/18 18:10 - Laboratory Result Diagrams: 08/07/18 19:40 08/07/18 19:40 Laboratory results interpreted by me: 08/07/18 08/07/18 19:40 19:40 MCH 26.7 L RDW 14.5 H Glucose 112 H Discharge - Discharge Clinical Impression: Abrasion Syncope Qualifiers: Syncope type: unspecified Qualified Code(s): R55 - Syncope and collapse Condition: Stable Disposition: HOME, SELF-CARE Instructions: Antibiotic Ointment Protection ([facility]), Laceration Care ([facility]), Soap Cleansing ([facility]), Syncopal Episode ([facility]), Tetanus Immunization Given ([facility]) Additional Instructions: As we discussed you have been seen and treated in the emergency department for syncopal episode. You did sustain an injury to her chin. It appears to be an abrasion and will not need any laceration repair. Please keep the area clean and dry. Please follow-up with your primary care provider in 24-48 hours. Please return to the emergency room for any other concerning symptoms. Referrals: DREAD ASH MD [Primary Care Provider] - Follow up as needed
[2018-08-07] MEDS ORDERED: DIPH/PERTUSS(ACELL)/TETANUS VAC/PF 0.5 ML SYR (>=10YO) IM ONE (23:43)
[2018-08-08 00:38] VITALS: BP 130/88
--- NOTE | 2018-08-08 23:46 | EKG REPORT ---
SEVERITY:- OTHERWISE NORMAL ECG - SINUS TACHYCARDIA : Confirmed by: Kris Coleman 08-Aug-2018 23:45:47
== END 2018-08-07 23:58 | disposition home or self-care (01) ==
LOC: ER 18:04
DX: S00.81XA Abrasion of other part of head, initial encounter (principal); S60.511A Abrasion of right hand, initial encounter; W19.XXXA Unspecified fall, initial encounter; Y92.198 Other place in other specified residential institution as the place of occurrence of the external cause; R55 Syncope and collapse; R44.1 Visual hallucinations; R00.0 Tachycardia, unspecified
CPT/HCPCS: 36415; 70450; 72125; 80053; 81001; 84703; 85025; 93005; 93010; 99284

== ENCOUNTER 2020-02-21 15:16 | Emergency (ER) | payer MEDICAID ==
[2020-02-21] MEDS ORDERED: HALOPERIDOL LACTATE INJ 5 MG/1 ML VIAL IM ONE (16:01)
--- NOTE | 2020-02-21 16:23 | PSYCHOLOGICAL NOTE ---
Psych Note - Psych Note Date seen by psych provider: 02/21/20 Time seen by psych provider: 16:00 Psych Note: Reason for Consult: IVC Patient arrived under IVC paperwork from her outpatient mental health provider JORGE Sanchez. Patient reportedly has been acting strangely per her significant other, not taking her medications and appeared from be responding to internal stimuli. Patient refuses to engage with clinician. Patient is laying in stretcher with legs crossed at the ankle and arms crossed her abdomen. Patient refused to make eye contact or speak. Clinician explained to patient that she arrived under IVC put forth by her outpatient mental health provider JIM. IVC protocol is explained. Due to patient's refusal to global climate change analyst clinician explained that well right now many choices had been taken from her she does have a clear choice right now to global climate change analyst on her own or staff can change her over without her assistance. Patient continued to refuse to engage. Clinician was notified that patient has chosen to global climate change analyst independently. Medication recommendations as per psychiatric provider, Dr. Hira HERNANDEZ are as follows: Start Zyprexa 5mg bid Start Cogentin 1mg daily Impression\plan: Patient is recommended to continue under IVC. Patient refuses to engage with evaluation. Medication recommendations have been provided. Patient be reevaluated. Dr. Yanez was consulted in the care management of this patient; tending physicians in agreement with recommendations and disposition.
[2020-02-21 16:54] LABS: ABSOLUTE BASOPHILS # (AUTO) 0.1 10^3/uL (0.0-0.2); ABSOLUTE LYMPHOCYTES (AUTO) 3.1 10^3/uL (0.5-4.7); ABSOLUTE MONOCYTES (AUTO) 1.1 10^3/uL (0.1-1.4); ABSOLUTE NEUT (AUTO) 5.5 10^3/uL (1.7-8.2); BASOPHILS % (AUTO) 0.7 % (0-2); EOSINOPHILS % (AUTO) 0.4 % (0-6); HEMATOCRIT 42.8 % (36.0-47.0); HEMOGLOBIN 14.1 g/dL (12.0-15.5); LYMPHOCYTES % (AUTO) 31.6 % (13-45); MEAN CORPUSCULAR HEMOGLOBIN 26.8 pg (27.0-33.4); MEAN CORPUSCULAR HGB CONC 32.9 g/dL (32.0-36.0); MEAN CORPUSCULAR VOLUME 81 fl (80-97); MONOCYTES % (AUTO) 10.9 % (3-13); PLATELET COUNT 287 10^3/uL (150-450); RED BLOOD COUNT 5.26 10^6/uL (3.72-5.28); RED CELL DISTRIBUTION WIDTH 14.4 % (11.5-14.0); SEGMENTED NEUTROPHILS % (AUTO) 56.4 % (42-78); TOTAL CELLS COUNTED % (AUTO) 100 %; WHITE BLOOD COUNT 9.8 10^3/uL (4.0-10.5)
[2020-02-21 17:15] LABS: ACETAMINOPHEN < 10 ug/mL (10-30); ALBUMIN 5.1 g/dL (3.5-5.0); ALCOHOL < 10 mg/dL (NONE DETECTED); ALKALINE PHOSPHATASE 77 U/L (38-126); ANION GAP 12 (5-19); ASPARTATE AMINO TRANSFERASE 24 U/L (14-36); BILIRUBIN,DIRECT 0.1 mg/dL (0.0-0.4); BLOOD UREA NITROGEN 19 mg/dL (7-20); CALCIUM 10.6 mg/dL (8.4-10.2); CARBON DIOXIDE 21 mmol/L (22-30); CHLORIDE 106 mmol/L (98-107); GLUCOSE 71 mg/dL (75-110); POTASSIUM 5.4 mmol/L (3.6-5.0); TOTAL PROTEIN 8.8 g/dL (6.3-8.2)
[2020-02-21 17:16] LABS: SALICYLATE < 1.0 mg/dL (2.0-20.0)
--- NOTE | 2020-02-21 17:50 | ER Document Report ---
ED General - General Chief Complaint: Psych Problem Stated Complaint: PSYCH EVAL Primary Care Provider: DREAD ASH MD [Primary Care Provider] - Follow up as needed Notes: Patient is a 24-year-old female presented today from [facility] by Dr. Nicholson. On IVC orders. Patient is not answering any questions by the provider. She will not answer if she has been any pain or has any medical concerns at this time. Do not know if patient has suicidal ideations, homicidal ideations or hallucinations at this time. TRAVEL OUTSIDE OF THE [place] IN LAST 30 DAYS: No - Related Data Allergies/Adverse Reactions: No Known Allergies Allergy (Verified 08/09/18 16:24) Past Medical History - Social History Smoking Status: Unknown if Ever Smoked Family History: Reviewed & Not Pertinent - Past Medical History Cardiac Medical History: Denies: Hx Congestive Heart Failure, Hx Heart Attack, Hx Hypertension Pulmonary Medical History: Denies: Hx Asthma, Hx Bronchitis, Hx COPD, Hx Pneumonia, Hx Tuberculosis Neurological Medical History: Denies: Hx Seizures, Hx Parkinson's Disease Renal/ Medical History: Denies: Hx End Stage Renal Disease, Hx Kidney Stones, Hx Peritoneal Dialysis GI Medical History: Denies: Hx Cirrhosis, Hx Gastroesophageal Reflux Disease, Hx Ulcer Musculoskeletal Medical History: Denies Hx Arthritis, Denies Hx Multiple Sclerosis Psychiatric Medical History: Reports: Hx Depression Denies: Hx Bipolar Disorder, Hx Schizophrenia Past Surgical History: Reports: Hx Gynecologic Surgery - R tube removed r/t ectopic , Hx Orthopedic Surgery - Immunizations Hx Diphtheria, Pertussis, Tetanus Vaccination: Yes Review of Systems - Review of Systems -: Yes ROS unobtainable due to patient's medical condition Physical Exam - Vital signs Vitals: Temp Pulse Resp BP Pulse Ox 98.6 F 83 20 113/80 100 02/21/20 15:29 02/21/20 15:29 02/21/20 15:29 02/21/20 15:29 02/21/20 15:29 Interpretation: Normal - Notes Notes: Adult General: GENERAL: Alert, No acute distress HEAD: Normocephalic, atraumatic EYES: Extraocular movements intact. ENT: Airway patent. Nares patent. NECK: Full range of motion. Supple. Trachea midline. No lymphadenopathy. LUNGS: Clear to auscultation bilaterally, no wheezes, rales, or rhonchi. No respiratory distress. Nontender chest wall. HEART: Regular rate and rhythm. No murmurs, rubs or gallops. ABDOMEN: Nondistended. GENITOURINARY: Deferred EXTREMITIES: Moves all 4 extremities spontaneously. No edema, normal radial and dorsal pedis pulses bilaterally. No cyanosis. BACK: Moves all extremities with full range of motion. NEUROLOGICAL: Alert. Normal speech. Strength 5/ 5 in all extremities. PSYCH: Normal affect, normal mood. SKIN: Warm, dry, normal turgor. No rashes or lesions noted. Course - Re-evaluation Re-evalutation: 02/21/20 17:49 Patient is not answering questions for medical provider. I am pending mental health evaluation for additional guidance. 02/21/20 18:43 I was able to discuss with the of the patient. He states that since she was dropped from boot [employer] she has been very depressed. States she has a history of schizophrenia and bipolar. Has been off of her medications recently. Her family members are also in the and that causes depression for her as well. States she has not been complaining of any health concerns at this time. She has not been eating appropriately. Her labs show her potassium is slightly elevated and her calcium is slightly elevated. I have ordered IV fluids. She had a small amount of dinner tonight. Pending UDS. 02/22/20 12:01 Urine drug screen is positive for marijuana. EKG is unremarkable. Patient has placement at a mental health facility. She was evaluated prior to leaving and is medically cleared to leave. - Vital Signs Vital signs: Temp Pulse Resp BP Pulse Ox 99.0 F 97 18 113/64 100 02/22/20 04:27 02/22/20 14:41 02/22/20 14:41 02/22/20 14:41 02/22/20 14:41 - Laboratory Result Diagrams: 02/21/20 16:25 02/21/20 23:08 Laboratory results interpreted by me: 02/21/20 02/21/20 02/21/20 16:25 16:25 23:08 MCH 26.8 L RDW 14.4 H Potassium 5.4 H Chloride 109 H Carbon Dioxide 21 L 21 L Glucose 71 L Calcium 10.6 H Total Protein 8.8 H Albumin 5.1 H Urine Protein Urine Ketones Urine Urobilinogen Salicylates < 1.0 L Acetaminophen < 10 L 02/22/20 08:01 MCH RDW Potassium Chloride Carbon Dioxide Glucose Calcium Total Protein Albumin Urine Protein 30 H Urine Ketones 80 H Urine Urobilinogen 2.0 H Salicylates Acetaminophen - EKG Interpretation by Me Additional EKG results interpreted by me: 02/22/20 12:01 sinus rhythm, 99 HR, qtc [address] segment elevations or depressions Discharge - Discharge Clinical Impression: History of posttraumatic stress disorder (PTSD) Condition: Good Disposition: PSYCH HOSP/UNIT Referrals: DREAD ASH MD [Primary Care Provider] - Follow up as needed
[2020-02-21] MEDS ORDERED: NORMAL SALINE 1000 ML 1,000 ML IV ONE (18:47)
[2020-02-21] MEDS ORDERED: DIPHENHYDRAMINE HCL 50 MG/ML VIAL IV ONE (22:55)
[2020-02-21 23:38] LABS: ALBUMIN 4.6 g/dL (3.5-5.0); ALKALINE PHOSPHATASE 70 U/L (38-126); ANION GAP 8 (5-19); ASPARTATE AMINO TRANSFERASE 26 U/L (14-36); BILIRUBIN,TOTAL 1.1 mg/dL (0.2-1.3); BLOOD UREA NITROGEN 17 mg/dL (7-20); CALCIUM 9.6 mg/dL (8.4-10.2); CARBON DIOXIDE 21 mmol/L (22-30); CHLORIDE 109 mmol/L (98-107); GLUCOSE 78 mg/dL (75-110); TOTAL PROTEIN 8.2 g/dL (6.3-8.2)
[2020-02-21 23:56] LABS: POTASSIUM 4.2 mmol/L (3.6-5.0)
[2020-02-22] MEDS ORDERED: DIPHENHYDRAMINE HCL 50 MG/ML VIAL IV ONE (04:06)
--- NOTE | 2020-02-22 07:37 | EKG REPORT ---
SEVERITY:- BORDERLINE ECG - SINUS RHYTHM PROBABLE LEFT ATRIAL ABNORMALITY : Confirmed by: Kale Savage MD 22-Feb-2020 07:36:51
[2020-02-22 09:55] LABS: APPEARANCE,URINE SLIGHTLY-CLOUDY; BILIRUBIN,URINE NEGATIVE (NEGATIVE); COLOR,URINE YELLOW; GLUCOSE, URINE NEGATIVE (NEGATIVE); KETONES,URINE 80 mg/dL (NEGATIVE); LEUKOCYTE ESTERASE,URINE NEGATIVE (NEGATIVE); NITRITE,URINE NEGATIVE (NEGATIVE); PROTEIN,URINE 30 mg/dL (NEGATIVE); URINE SPECIFIC GRAVITY 1.025
[2020-02-22 10:08] LABS: URINE AMPHETAMINES SCREEN NEGATIVE; URINE BARBITURATES SCREEN NEGATIVE; URINE BENZODIAZEPINES SCREEN NEGATIVE; URINE COCAINE SCREEN NEGATIVE; URINE MARIJUANA (THC) SCREEN UNCONFIRMED POSITIVE; URINE METHADONE SCREEN NEGATIVE; URINE PHENCYCLIDINE SCREEN NEGATIVE
--- NOTE | 2020-02-22 14:40 | PSYCHOLOGICAL NOTE ---
Psych Note - Psych Note Date seen by psych provider: 02/22/20 Time seen by psych provider: 11:15 Psych Note: Reason for Consult: IVC Patient arrived under IVC paperwork from her outpatient mental health provider JORGE Sanchez. Patient reportedly has been acting strangely per her significant other, not taking her medications and appeared from be responding to internal stimuli. Check in conducted with patient: Patient continues to refuse to engage with clinician. Patient is noted to have a strong odor. She continues to start at the wall with her arms crossed. Clinician spoke with patient's boyfriend. He reports that the patient has been declining significantly and has gotten to the point where he was afraid to leave her home alone with her son. He disclosed that she was doing extremely erratic things and not making much sense. 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 He reports he has been helping her but she refuses to take medications. Clinician informed him of placement for patient; he was provided contact information for [facility]. Medication recommendations as per psychiatric provider, Dr. Hira HERNANDEZ are as follows: Start Zyprexa 5mg bid Start Cogentin 1mg daily Impression\plan: Patient is recommended to continue under IVC. Patient refuses to engage with evaluation. Patient has been accepted to [facility]; transportation has been requested. Dr. Yanez was consulted in the care management of this patient; tending physicians in agreement with recommendations and disposition.
[2020-02-22 14:42] VITALS: BP 113/64
== END 2020-02-22 14:46 ==
LOC: ER 15:16
DX: F43.10 Post-traumatic stress disorder, unspecified (principal); F32.9 Major depressive disorder, single episode, unspecified; Z20.828 Contact with and (suspected) exposure to other viral communicable diseases
CPT/HCPCS: 93005; 96376; 99285; 96361; 96374; 36415; 80307 ×4; 84703; 85025; 87635; 87070; 80053; 81001; 93010; J1200 ×2; J7030; C9803